=== PATIENT | female | born 1975 | race Caucasian/White ===

== ENCOUNTER 2019-11-20 14:34 | Outpatient (CLI) | payer BC, SELFPAY ==
[2019-11-20 15:57] LABS: Hematocrit 36.4 % (37.0-47.0)
== END 2019-11-20 14:35 | disposition home or self-care (01) ==
PROVIDERS: Anesthesiology; PCP Family Medicine; Visit Provider Obstetrics & Gynecology
DX: Z01.818 Encounter for other preprocedural examination (principal); N92.0 Excessive and frequent menstruation with regular cycle
CPT/HCPCS: 36415; 85014; 85018; 86850; 86900; 86901

== ENCOUNTER 2019-11-28 00:14 | Outpatient (CLI) | payer BC, SELFPAY ==
[2019-11-28 17:37] LABS: SARS-CoV-2 RNA PCR Negative
== END 2019-11-28 00:15 | disposition home or self-care (01) ==
LOC: ANHCOVIDDT 00:14
PROVIDERS: PCP Family Medicine; Visit Provider Obstetrics & Gynecology
DX: Z01.812 Encounter for preprocedural laboratory examination (principal); Z20.828 Contact with and (suspected) exposure to other viral communicable diseases
CPT/HCPCS: 87635; C9803; U0003

== ENCOUNTER 2019-12-01 00:24 | Day surgery (SDC) | payer BC, SELFPAY ==
[2019-11-18 13:43] VITALS: BMI 22.1
[2019-12-01] VITALS (13 sets, daily range): BP systolic 81–127; BP diastolic 52–70; PULSE 55–81; RESP 10–18; TEMP 36.2–37.4; O2SAT 97–100
--- NOTE | 2019-12-01 07:48 | WPDHPUPDATE1 ---
History and Physical Update Update Date/Time: 12/01/19 07:48 History and Physical has been reviewed, including an updated exam of the patient. There are NO changes in the patient's condition. Risks, benefits, and alternatives have been discussed and questions answered. Patient agrees to proceed with procedure.
--- NOTE | 2019-12-01 07:50 | WPDANESEPPF ---
Anes - Initial Pre Proc Eval Procedure: Operation Date: 12/01/19 08:30 Proposed Procedures p Total Laparoscopic Hysterectomy - Jhoan Osorio MD Date/Time: 12/01/19 07:50 Surgeon: Jhoan Osorio MD Pre Op Diagnosis: Menorrhagia Patient Data Age: 44 Gender: F Height: 5 ft 6.5 in Weight: 63.05 kg Allergies Allergy/AdvReac Type Severity Reaction Status Date / Time No Known Allergies Allergy Verified 12/01/19 07:33 Home Medications Medication Instructions Recorded Confirmed Type No Home Medications 11/18/19 12/01/19 History Patient hx anesthesia problems: none Family hx anesthesia problems: none [facility] Past Medical History Medical History (Updated 12/01/19 @ 07:49 by Hieu Kingsley MD) Healthy adult Social History Social History Smoking status: Never smoker Spiritual care concerns: No Anes - Eval Final PreProcedure Day of Procedure 12/01/19 07:50 Patient weight: normal Heart: regular rate and rhythm Lungs: clear to auscultation Airway: Mallampati scale class II Neurological: alert and oriented Last oral intake: >/= 8 hours ASA classification: II Emergent: no Anesthetic plan: proceed Anesthesia type and monitoring: general ETT and standard monitoring Informed Consent: The patient's anesthetic plan and its attendant risks and benefits were discussed with the patient/family/POA. Questions were solicited and answers provided to the satisfaction of the patient/family/POA.
[2019-12-01] MEDS: ACETAMINOPHEN 500 MG TABLET 1000 MG PO (07:51)
[2019-12-01] MEDS: KETOROLAC 15 MG/ML VIAL (*BKC) IV PUSH (07:52)
[2019-12-01] MEDS: LACTATED RINGERS 1,000 ML 30 ML IV CONT ×3 (07:53→10:31)
[2019-12-01] MEDS: ceFAZolin 2 GM/D5W 50 ML 2 GM/50 ML BAG IVPB (08:11)
--- NOTE | 2019-12-01 10:14 | PM.PROC ---
Procedure Note - Detailed Date of procedure: 12/01/19 Pre-op diagnosis: Menorrhagia Myoma Post-op diagnosis: same Procedure performed: Total laparoscopic hysterectomy. Bilateral salpingectomy, right ovarian cystectomy. Description of procedure: The patient was taken to the operating room. She was prepped and draped in the dorsal lithotomy position. A speculum was placed in the vagina. The cervix was grasped with a tenaculum. Stay sutures were placed at 3 and 9:00 a.m. of 0 Vicryl. The stay sutures were brought through the Tiesha up. The MANSI manipulator was placed in the vagina with a fixed Tiesha cup. The cup was then pushed up around the cervix. The sutures were tied to the handle of the MANSI manipulator. A 5 mm incision was made on the abdominal skin of the left upper quadrant using a scalpel. A 5 mm trocar was inserted into the intra-abdominal cavity under direct visualization the scope. Pneumoperitoneum was achieved. An 11 mm incision was made in the left lower quadrant of the abdomen with a scalpel. A 11 mm trocar was inserted into the intra-abdominal cavity under direct visualization the scope. A 5 mm periumbilical incision was made. A 5 mm scope was placed into the intra-abdominal cavity under direct visualization of the scope. The suspensory ligament of the ovary was cauterized and transected with ligature cautery in a bilateral fashion. The fallopian tubes were cauterized and transected in a bilateral fashion with LigaSure cautery. The round ligaments were cauterized and transected in bilateral fashion with LigaSure cautery. The round ligaments were cauterized and transected bilaterally with LigaSure cautery. The broad ligaments were cauterized and transected along the lateral aspects of the uterus down the level of the uterine arteries. A bladder flap was created using sharp and blunt dissection. The ureters were dissected out bilaterally down to the level of the uterine arteries. They could be visualized from the pelvic brim down the uterine arteries. Staying very close to the cervix the parametrium was cauterized transected in a stepwise fashion down to the level of the Tiesha cup. The Bladder flap was moved distally over the Tiesha cup using sharp and blunt dissection. The impression of the entire cup was visualized around the cervix. An incision was made with unipolar cautery down under the Tiesha cup creating a colpotomy incision all the way around the cervix. A 4th 5 mm trocar was placed in the right lower quadrant under direct visualization of the scope after a 5 mm incision was made with a scalpel. A tenaculum was placed through this trocar on the lateral aspects of the uterus was grasped. Other tenaculum graspers on the contralateral side through another site. The uterus was then bivalved. It was cut down the middle and in 2 pieces the uterus was taken out through the vagina. A pneumo occluder was placed in the vagina. The vagina was closed with 0 V lock suture in a running fashion. The ureters were identified again and found to be intact to the level of the uterine arteries. both fallopian tubes were amputated due to the presence paratubal cyst. This was done using the LigaSure cautery and taken at the left lower trocar site. A ovarian cystectomy was performed performed on the right side. A angry appearing hemorrhagic cyst was present. The pelvis was irrigated with a copious amount of antibiotic irrigation. The pneumoperitoneum was reduced. The trocars were removed. The skin was closed subcuticular 4 Monocryl covered with Dermabond. The pneumo occluder was removed from the vagina. The vagina was irrigated with Betadine. The patient tolerated the procedure well. She was taken to the recovery room in stable condition. Sponge lap and needle counts were correct x2. Anesthesia: GETA Surgeon: Jhoan Osorio MD Estimated blood loss (mL): 200 Drains: No Packing: No Pathology: yes Complications: No immediate complications Condition
[2019-12-01] MEDS: diphenhydrAMINE HCl INJ 50 MG/ML VIAL 25 MG IV PUSH (10:25)
--- NOTE | 2019-12-01 10:50 | SUR.PHASEI ---
1050 SBAR FAXED FLOOR NOTIFIED
[2019-12-01] MEDS: LACTATED RINGERS 1,000 ML 125 ML (12:35)
[2019-12-01] MEDS: KETOROLAC 30 MG/ML VIAL (*BKC) IV PUSH (12:38)
--- NOTE | 2019-12-01 13:13 | PC.NURSE ---
This patient, Nathaly Garcia, was received from PACU on 12/01/19 at 1112. Patient/family oriented to unit policies and routines
[2019-12-02] VITALS: BP 100/57; PULSE 68; RESP 16; TEMP 37.3; O2SAT 98
[2019-12-02 04:00] VITALS: BP 99/58; PULSE 68; RESP 18; TEMP 37.3; O2SAT 99
[2019-12-02 07:38] VITALS: BP 112/65; PULSE 63; PULSE 68; RESP 18; TEMP 37.1; TEMP 37.2; O2SAT 99
== END 2019-12-02 08:41 | disposition home or self-care (01) ==
LOC: ANHSURGERY 06:31 → ANHOB2 11:10
PROVIDERS: PCP Family Medicine; Visit Provider Obstetrics & Gynecology
PROC: 0UT9FZZ Resection of Uterus, Via Natural or Artificial Opening With Percutaneous Endoscopic Assistance (ICD-10-PCS; CPT 58573; principal; 2019-12-01 08:30)
DX: N92.0 Excessive and frequent menstruation with regular cycle (principal); N72 Inflammatory disease of cervix uteri; D25.0 Submucous leiomyoma of uterus; D25.1 Intramural leiomyoma of uterus; D25.2 Subserosal leiomyoma of uterus; N94.89 Other specified conditions associated with female genital organs and menstrual cycle; N80.0 Endometriosis of uterus; N83.11 Corpus luteum cyst of right ovary; N83.8 Other noninflammatory disorders of ovary, fallopian tube and broad ligament
CPT/HCPCS: 58573; 88307; 99199; A9270; J0690; J1100; J1170; J1200; J1885; J2250; J2405; J2704; J3010; J7030; J7120